=== PATIENT | female | born 1930 | race Caucasian/White ===

== ENCOUNTER 2017-05-16 10:59 | Inpatient (IN) | payer MEDICARE, OTHER ==
[~2017-05-16] VITALS: Ht 157.5 cm; Wt 60.0 kg
[~2017-05-16 10:59] MED LIST: BISA10SU8 PR; DOCU1CAP39 PO; GEMF600 PO; GLYB2.5T3 PO; LEVE500 PO; LORTA5 PO; MILKSUS5 PO
[2017-05-16 11:01] VITALS: BP 154/72; PULSE 78; RESP 24; TEMP 97.7; O2SAT 93
--- NOTE | 2017-05-16 12:26 | PD ---
HPI Chief Complaint: ENT Complaint Time Seen by Provider: 12:07 Travel History International Travel<30 days: No Contact w/Intl Traveler<30days: No Traveled to known affect area: No History of Present Illness HPI 86-year-old female presents to the emergency department for evaluation of pain to her left forehead. She states she has pain that starts in the ear and radiates to the forehead. Just reports drainage from the left eye. The patient states she saw an eye doctor and her primary care physician on , 2 days ago. Her primary care physician is Dr. Diop. I reviewed the paperwork from him. He did suspect shingles at that time, but did not have a rash. He referred her to an chancellor, Dr. Dobbs, who stated there was nothing wrong with her eye at that time. However, since then, she has developed a rash. The rash is erythematous in nature, but stops at the midline. I do see some vesicles on the scalp region. She has yellow drainage from the left eye with erythematous conjunctiva. The patient was prescribed gabapentin by her primary care physician for possible trigeminal neuralgia. She states she had lab work done prior to seeing him. She states the pain is sharp and shooting. She does report history of shingles with one vesicle to the left chin. PFSH Past Medical History Hx Anticoagulant Therapy: No Arthritis: Yes Asthma: Yes (BRONCHIAL) Atrial Fibrillation: Yes Blood Disorders: No Anxiety: No Depression: No Heart Rhythm Problems: Yes (HEART MURMUR, ATRIAL FIB ) Cancer: No Cardiac Catheterization: Yes Cardiovascular Problems: No High Cholesterol: Yes Chemotherapy: No Chest Pain: Yes Congestive Heart Failure: No Cerebrovascular Accident: Yes Diabetes: Yes Endocrine: Yes GERD: No Genitourinary: No Hiatal Hernia: No Hypertension: Yes Immune Disorder: No Musculoskeletal: Yes Neurologic: No Psychiatric: No Reproductive: No Respiratory: No Migraines: Yes (hx) Myocardial Infarction: No Radiation Therapy: No Seizures: No Sleep Apnea: No Thyroid Disease: Yes Ulcer: No Menopausal: Yes Past Surgical History Abdominal Surgery: No Cardiac Surgery: No Coronary Artery Bypass Graft: No Ear Surgery: No Endocrine Surgery: No Eye Surgery: No Genitourinary Surgery: No Gynecologic Surgery: No Hysterectomy: No Oral Surgery: No Thoracic Surgery: No Social History Alcohol Use: No Tobacco Use: No Substance Use: No Allergies-Medications (Allergen,Severity, Reaction): Coded Allergies: penicillin G (Unverified Allergy, Severe, 05/05/17) atorvastatin (Unverified Allergy, Intermediate, 05/05/17) Sulfa (Sulfonamide Antibiotics) (Unverified Allergy, Unknown, 05/05/17) Uncoded Allergies: STATIN DRUGS (Allergy, Intermediate, 12/26/10) Reported Meds & Prescriptions Reported Meds & Active Scripts Active Reported Gabapentin 100 Mg Cap 100 Mg PO HS Polymyxin B-Trimethoprim Opth Drops 10,000-0.1 Unit/Ml-% Soln 1 Drop RIGHT EYE Q6HR Ibuprofen 600 Mg Tab 600 Mg PO Q6H PRN Methimazole 5 Mg Tab 2.5 Mg PO DAILY Gemfibrozil 600 Mg Tab 600 Mg PO BIDAC Take 30 minutes prior to breakfast and dinner. Aspirin 81 Mg Chew 81 Mg CHEW DAILY Metformin (Metformin HCl) 500 Mg Tab 500 Mg PO DAILY With a meal Glimepiride 4 Mg Tab 4 Mg PO DAILY Take with breakfast or first main meal Review of Systems Except as stated in HPI: all other systems reviewed are Neg Physical Exam Narrative GENERAL: Well-nourished, well-developed elderly female patient, afebrile. SKIN: Focused skin assessment warm/dry. Patient has erythema at the left forehead and to the left eye orbit that stops at the midline. There is also some erythema to the scalp region. I am able to locate some vesicles in the scalp region. HEAD: Normocephalic. Atraumatic. ENT: Mucosa pink and moist. No erythema or exudates. No uvular edema. No uvular , palatal, or tonsillar deviation. Airway patent. Nasal turbinates appear normal without nasal blood, purulent drainage or septal hematoma. Bilateral tympanic membranes are clear without erythema or perforation. EYES: No scleral icterus. Left conjunctiva is erythematous with yellow drainage noted. Patient has tenderness to palpation of the left upper and lower eyelid with swelling noted. Fluorescein examination is negative. NECK: Supple, trachea midline. No JVD or lymphadenopathy. CARDIOVASCULAR: Regular rate and rhythm without murmurs, gallops, or rubs. RESPIRATORY: Breath sounds equal bilaterally. No accessory muscle use. Lungs sounds are clear to auscultation. GASTROINTESTINAL: Abdomen soft, non-tender, nondistended. MUSCULOSKELETAL: No cyanosis, or edema. BACK: Nontender without obvious deformity. No CVA tenderness. Data Data Last Documented VS Vital Signs Date Time Temp Pulse Resp B/P (MAP) Pulse Ox O2 Delivery O2 Flow Rate FiO2 05/16/17 11:01 97.7 78 24 154/72 (99) 93 Room Air Orders Orders Proparacaine 0.5% Opth Soln (Alcaine 0.5 (05/16/17 12:30) Iv Access Insert/Monitor (05/16/17 12:49) Comprehensive Metabolic Panel (05/16/17 12:49) Complete Blood Count With Diff (05/16/17 12:49) Acyclovir Inj (Zovirax Inj) (05/16/17 13:00) Admit Order (Ed Use Only) (05/16/17 13:56) Labs Laboratory Tests Test 05/16/17 13:00 White Blood Count 7.0 TH/MM3 Red Blood Count 4.82 MIL/MM3 Hemoglobin 13.8 GM/DL Hematocrit 43.0 % Mean Corpuscular Volume 89.3 FL Mean Corpuscular Hemoglobin 28.7 PG Mean Corpuscular Hemoglobin Concent 32.1 % Red Cell Distribution Width 13.6 % Platelet Count 156 TH/MM3 Mean Platelet Volume 9.0 FL Neutrophils (%) (Auto) 70.0 % Lymphocytes (%) (Auto) 15.9 % Monocytes (%) (Auto) 12.2 % Eosinophils (%) (Auto) 1.3 % Basophils (%) (Auto) 0.6 % Neutrophils # (Auto) 4.9 TH/MM3 Lymphocytes # (Auto) 1.1 TH/MM3 Monocytes # (Auto) 0.8 TH/MM3 Eosinophils # (Auto) 0.1 TH/MM3 Basophils # (Auto) 0.0 TH/MM3 CBC Comment DIFF FINAL Differential Comment Blood Urea Nitrogen 25 MG/DL Creatinine 1.23 MG/DL Random Glucose 269 MG/DL Total Protein 7.0 GM/DL Albumin 3.6 GM/DL Calcium Level 10.1 MG/DL Alkaline Phosphatase 93 U/L Aspartate Amino Transf (AST/SGOT) 15 U/L Alanine Aminotransferase (ALT/SGPT) 18 U/L Total Bilirubin 0.4 MG/DL Sodium Level 137 MEQ/L Potassium Level 4.3 MEQ/L Chloride Level 104 MEQ/L Carbon Dioxide Level 25.3 MEQ/L Anion Gap 8 MEQ/L Estimat Glomerular Filtration Rate 41 ML/MIN [facility] Medical Decision Making Medical Screen Exam Complete: Yes Emergency Medical Condition: Yes Medical Record Reviewed: Yes Differential Diagnosis herpes zoster vs. herpes zoster ophthalmicus vs. trigeminal neuralgia vs. preseptal cellulitis Narrative Course 86-year-old female presents to the emergency department for evaluation of pain to her left forehead, with left eye irritation and drainage. On exam, the patient does have erythematous rash with some vesicles noted in the scalp. Concern is for herpes zoster. I am unable to visualize any dendritic lesions with the slit lamp. I discussed the case with my attending physician, Dr. Crockett, who recommends admission due to location and severity of zoster and close proximity to eye with a consult to ophthalmology. CBC, CMP are ordered and pending. Patient is given IV acyclovir 10 mg/kg. CBC shows elevated monocytes at 12.2. CMP shows BUN 25, creatinine of 1.23, glucose 269. [facility] is paged for admission. Dr. Baez accepted admission. I spoke with Dr. Souza who states that chancellor needs to see patient approximately 10 days after vesicles erupt. He does not recommend any further treatment other than acyclovir at this time. Diagnosis Primary Impression: Herpes zoster Qualified Codes: B02.31 - Zoster conjunctivitis Admitting Information Admitting Physician Requests: Vida Ferro May 16, 2017 12:26
[2017-05-16] MEDS ORDERED: PROPARACAINE HCL 0.5% OPHT SOLN 15 ML BTL LEFT EYE ONE (12:30)
[2017-05-16] MEDS ORDERED: ACYCLOVIR INJ 600 MG in SODIUM CHLORIDE 0.9% INJ 100 ML IV ONE (13:00)
[2017-05-16 13:14] LABS: AUTOMATED NEUTROPHIL # 4.9 TH/MM3 (1.8-7.7); BASOPHIL % 0.6 % (0.0-2.0); EOSINOPHIL # 0.1 TH/MM3 (0-0.4); EOSINOPHIL % 1.3 % (0.0-4.0); HEMO FLAGS DIFF FINAL; LYMPH % 15.9 % (9.0-44.0); LYMPHOCYTE # 1.1 TH/MM3 (1.0-4.8); MEAN CELL VOLUME 89.3 FL (80.0-100.0); MEAN CORPUSCULAR HEMOGLOBIN 28.7 PG (27.0-34.0); MEAN CORPUSCULAR HGB CONC 32.1 % (32.0-36.0); MONO % 12.2 % (0.0-8.0); PLATELET COUNT 156 TH/MM3 (150-450); RED BLOOD COUNT 4.82 MIL/MM3 (4.00-5.30); RED CELL DISTRIBUTION WIDTH 13.6 % (11.6-17.2)
[2017-05-16 13:30] LABS: ANION GAP 8 MEQ/L (5-15); AST (GOT) 15 U/L (15-37); BICARBONATE 25.3 MEQ/L (21.0-32.0); BLOOD UREA NITROGEN 25 MG/DL (7-18); CHLORIDE 104 MEQ/L (98-107); GLOMERULAR FILTRATION RATE 41 ML/MIN (>89); POTASSIUM 4.3 MEQ/L (3.5-5.1); SODIUM (NA) 137 MEQ/L (136-145)
[2017-05-16 13:31] LABS: ALT (GPT) 18 U/L (10-53)
[2017-05-16 13:33] LABS: ALKALINE PHOSPHATASE 93 U/L (45-117); TOTAL BILIRUBIN ADULT 0.4 MG/DL (0.2-1.0)
[2017-05-16] MEDS ORDERED: methylPREDNISolone SOD SUCC 125 MG/2 ML VIAL IV PUSH ONE (14:15)
[2017-05-16] MEDS ORDERED: HYDROmorphone HCL PF 1 MG/ML VIAL IV PUSH PRN (14:15)
--- NOTE | 2017-05-16 14:15 | HHI.HP ---
HPI Service [facility]ists Primary Care Physician Maikel Aldana M.D. Admission Diagnosis herpes zoster with possible eye involvment Chief Complaint: left ear/face pain and rash. Travel History International Travel<30 Days: No Contact w/Intl Traveler <30 Da: No Traveled to Known Affected Are: No History of Present Illness Pt is 86 yo with hx sdh, pafib, htn who presents with left ear/facial pain x 4 or 5days. Seen by pcp/ophtho and concerns for herpes zoster. No reported eye involvement per her eye doctor. Now pt presents with rash over the scalp/forehead/cheek/nose with scleral injection. ED performed florescein testing with slit lamp and no proof of eye involvement. ED consulted with ophtho nanoelectronics engineer and no need for consult..but f/u in 10 d IV acyclovir was given in ED. PT still has significan pain and has not been eating well. Review of Systems Other left ear/facial pain Past Family Social History Past Medical History sdh s/p evacuation 2013 pAFIB htn hyperlipidemia hyperthyroidism dm 2 hx herpes zoster...chin Reported Medications asa 81mg daily lopid 300mg bid amaryl 4mg dialy metformin 500mg daily polymyxin 4x daily to right eye gabapentin titration...100mg at present ibuprofen prn MV methimazole 2.5m daily Allergies: Coded Allergies: penicillin G (Unverified Allergy, Severe, 05/05/17) atorvastatin (Unverified Allergy, Intermediate, 05/05/17) Sulfa (Sulfonamide Antibiotics) (Unverified Allergy, Unknown, 05/05/17) Uncoded Allergies: STATIN DRUGS (Allergy, Intermediate, 12/26/10) Family History nc Social History no etoh. tob Physical Exam Vital Signs erythematous/tender rash over left cheek/nose/forehead/scalp but not crossing midline. no vesicles in ear canal. injection of the left sclera noted heart irreg lung cta abd /snt ext no edema Laboratory Laboratory Tests Test 05/16/17 13:00 White Blood Count 7.0 Red Blood Count 4.82 Hemoglobin 13.8 Hematocrit 43.0 Mean Corpuscular Volume 89.3 Mean Corpuscular Hemoglobin 28.7 Mean Corpuscular Hemoglobin Concent 32.1 Red Cell Distribution Width 13.6 Platelet Count 156 Mean Platelet Volume 9.0 Neutrophils (%) (Auto) 70.0 Lymphocytes (%) (Auto) 15.9 Monocytes (%) (Auto) 12.2 Eosinophils (%) (Auto) 1.3 Basophils (%) (Auto) 0.6 Neutrophils # (Auto) 4.9 Lymphocytes # (Auto) 1.1 Monocytes # (Auto) 0.8 Eosinophils # (Auto) 0.1 Basophils # (Auto) 0.0 CBC Comment DIFF FINAL Differential Comment Blood Urea Nitrogen 25 Creatinine 1.23 Random Glucose 269 Total Protein 7.0 Albumin 3.6 Calcium Level 10.1 Alkaline Phosphatase 93 Aspartate Amino Transf (AST/SGOT) 15 Alanine Aminotransferase (ALT/SGPT) 18 Total Bilirubin 0.4 Sodium Level 137 Potassium Level 4.3 Chloride Level 104 Carbon Dioxide Level 25.3 Anion Gap 8 Estimat Glomerular Filtration Rate 41 Result Diagram: 05/16/17 1300 05/16/17 1300 Riteshrinryan VTE Risk Assessment Caprini VTE Risk Assessment: Mod/High Risk (score >= 2) Caprini Risk Assessment Model Point Value = 1 Point Value = 2 Point Value = 3 Point Value = 5 Age 41-60 Minor surgery BMI > 25 kg/m2 Swollen legs Varicose veins or History of unexplained or recurrent spontaneous Oral contraceptives or hormone replacement Sepsis (< 1 month) Serious lung disease, including pneumonia (< 1 month) Abnormal pulmonary function Acute myocardial infarction Congestive heart failure (< 1 month) History of inflammatory bowel disease Medical patient at bed rest Age 61-74 Arthroscopic surgery Major open surgery (> 45 min) Laparoscopic surgery (> 45 min) Malignancy Confined to bed (> 72 hours) Immobilizing plaster cast Central venous access Age >= 75 History of VTE Family history of VTE Factor V Leiden Prothrombin [id number] Lupus anticoagulant Anticardiolipin antibodies Elevated serum homocysteine Heparin-induced thrombocytopenia Other congenital or acquired thrombophilia Stroke (< 1 month) Elective arthroplasty Hip, pelvis, or leg fracture Acute spinal cord injury (< 1 month) Prophylaxis Regimen Total Risk Factor Score Risk Level Prophylaxis Regimen 0-1 Low Early ambulation 2 Moderate Order ONE of the following: *Sequential Compression Device (SCD) *Heparin 5000 units SQ BID 3-4 Higher Order ONE of the following medications: *Heparin 5000 units SQ TID *Enoxaparin/Lovenox 40 mg SQ daily (WT < 150 kg, CrCl > 30 mL/min) *Enoxaparin/Lovenox 30 mg SQ daily (WT < 150 kg, CrCl > 10-29 mL/min) *Enoxaparin/Lovenox 30 mg SQ BID (WT < 150 kg, CrCl > 30 mL/min) AND/OR *Sequential Compression Device (SCD) 5 or more Highest Order ONE of the following medications: *Heparin 5000 units SQ TID (Preferred with Epidurals) *Enoxaparin/Lovenox 40 mg SQ daily (WT < 150 kg, CrCl > 30 mL/min) *Enoxaparin/Lovenox 30 mg SQ daily (WT < 150 kg, CrCl > 10-29 mL/min) *Enoxaparin/Lovenox 30 mg SQ BID (WT < 150 kg, CrCl > 30 mL/min) AND *Sequential Compression Device (SCD) Assessment and Plan Problem List: (1) Herpes zoster ICD Codes: B02.9 - Zoster without complications Status: Acute Plan: Pt with left ear/facial pain over this past 4 or 5 days seen by pcp/ophtho concerns for herpes zoster. no reported eye involvement per her eye doctor. Now pt presents with rash over the scalp/forehead/cheek/nose with scleral injection. ED performed florescein testing with slit lamp and no proof of eye involvement. ED consulted with ophtho nanoelectronics engineer and no need for consult..but f/u in 10 d will cont iv acyclovir and aggressive pain control gentle ivf and recheck labs in AM. cont ssi/oha (2) Dehydration ICD Codes: E86.0 - Dehydration Status: Acute Plan: see above (3) DM type 2 (diabetes mellitus, type 2) ICD Codes: E11.9 - Type 2 diabetes mellitus Status: Chronic Plan: see above (4) HTN (hypertension) ICD Codes: I10 - Hypertension Status: Chronic (5) Afib ICD Codes: I48.91 - Atrial fibrillation Status: Chronic Plan: on just asa. (6) SDH (subdural hematoma) ICD Codes: I62.00 - Subdural hematoma Status: Resolved Physician Certification 2 Midnight Certification Type: Admission for Inpatient Services Order for Inpatient Services 3The services are ordered in accordance with Medicare regulations or non- Medicare payer requirements, as applicable. In the case of services not specified as inpatient-only, they are appropriately provided as inpatient services in accordance with the 2-midnight benchmark. Estimated LOS (days): 3 3 days is the estimated time the patient will need to remain in the hospital, assuming treatment plan goals are met and no additional complications. Post-Hospital Plan: Home Problem Qualifiers (1) Herpes zoster: Qualified Codes: B02.31 - Zoster conjunctivitis Yanick Worthington MD May 16, 2017 14:15
[2017-05-16] MEDS ORDERED: ACETAMINOPHEN 325 MG TAB PO PRN (14:30)
[2017-05-16] MEDS ORDERED: ONDANSETRON HCL 4 MG/2 ML VIAL IV PUSH PRN (14:30)
[2017-05-16] MEDS ORDERED: ASPI81CH CHEW (14:32)
[2017-05-16] MEDS ORDERED: METH5TAB4 PO (14:32)
[2017-05-16] MEDS ORDERED: GEMF600T PO (14:32)
[2017-05-16] MEDS ORDERED: METF500T PO (14:32)
[2017-05-16] MEDS ORDERED: TRIMSOL RIGHT EYE (14:32)
[2017-05-16] MEDS ORDERED: GABA100C4 PO (14:32)
[2017-05-16] MEDS ORDERED: IBUP-232 PO (14:32)
[2017-05-16] MEDS ORDERED: GLIM4TAB PO (14:32)
[2017-05-16] MEDS ORDERED: PILL SPLITTER OTHER PRN (15:15)
[2017-05-16] MEDS: SODIUM CHLOR 0.9% 1000 ML INJ 1,000 ML IV SCH (15:23)
[2017-05-16 15:30] VITALS: BP 152/78; PULSE 76; RESP 20
[2017-05-16] MEDS ORDERED: DEXTROSE 50% IN WATER 50 ML VIAL(D50) IV PUSH PRN (15:45)
[2017-05-16] MEDS ORDERED: GLUCAGON 1 MG/ML VIAL OTHER PRN (15:45)
[2017-05-16] MEDS: INSULIN ASPART SUPPLEMENTAL SCALE SQ SCH ×2 (16:08→22:36)
[2017-05-16] MEDS: GABAPENTIN 300 MG CAP PO SCH (18:45)
[2017-05-16] MEDS: POLYMYXIN/TRIMETHOPRIM OPHT SOLN 10 ML BTL RIGHT EYE SCH (18:45)
[2017-05-16 20:00] VITALS: BP 162/72; PULSE 75; RESP 18; TEMP 97.9; O2SAT 91
[2017-05-16] MEDS: ACYCLOVIR INJ 600 MG in SODIUM CHLORIDE 0.9% INJ 100 ML IV SCH (22:34)
[2017-05-17] VITALS: BP 153/70; PULSE 73; RESP 18; TEMP 97.8; O2SAT 92
[2017-05-17] MEDS: POLYMYXIN/TRIMETHOPRIM OPHT SOLN 10 ML BTL RIGHT EYE SCH ×4 (00:20→18:11)
[2017-05-17 04:00] VITALS: BP 124/60; PULSE 64; RESP 18; TEMP 98.4; O2SAT 93
[2017-05-17] MEDS: ACYCLOVIR INJ 600 MG in SODIUM CHLORIDE 0.9% INJ 100 ML IV SCH ×3 (04:55→23:23)
[2017-05-17] MEDS: SODIUM CHLOR 0.9% 1000 ML INJ 1,000 ML IV SCH (04:58)
[2017-05-17] MEDS: INSULIN ASPART SUPPLEMENTAL SCALE SQ SCH ×4 (05:33→20:37)
[2017-05-17 08:00] VITALS: BP 151/69; PULSE 72; RESP 17; TEMP 97.9; O2SAT 96
[2017-05-17] MEDS: METHIMAZOLE 5 MG TAB PO SCH (08:31)
[2017-05-17] MEDS: GLIMEPIRIDE 4 MG TAB PO SCH (08:31)
[2017-05-17] MEDS: PANTOPRAZOLE SOD 40 MG DELAYED RELEASE TAB PO SCH (08:31)
[2017-05-17] MEDS: GABAPENTIN 300 MG CAP PO SCH ×3 (08:31→18:11)
[2017-05-17] MEDS: GEMFIBROZIL 600 MG TAB PO SCH ×2 (08:31→16:20)
[2017-05-17] MEDS: ASPIRIN 81 MG CHEW TAB CHEW SCH (08:31)
--- NOTE | 2017-05-17 10:29 | HHI.PR ---
Subjective Remarks seems a little more comfortable. left eye vision is still nml per pt. Objective Vitals left scalp/face/nose/cheek with vesicular/papular rash on red base with confluence left sclera injection heartreg lung cta abd snt ext no edema Vital Signs Date Time Temp Pulse Resp B/P (MAP) Pulse Ox O2 Delivery O2 Flow Rate FiO2 05/17/17 08:00 97.9 72 17 151/69 (96) 96 05/17/17 04:00 98.4 64 18 124/60 (81) 93 05/17/17 00:00 97.8 73 18 153/70 (97) 92 05/16/17 20:00 97.9 75 18 162/72 (102) 91 05/16/17 15:30 76 20 152/78 (102) 05/16/17 11:01 97.7 78 24 154/72 (99) 93 Room Air Result Diagram: 05/16/17 1300 05/16/17 1300 A/P Problem List: (1) Herpes zoster ICD Codes: B02.9 - Zoster without complications Status: Acute Plan: Pt with left ear/facial pain over this past 4 or 5 days seen by pcp/ophtho concerns for herpes zoster. no reported eye involvement per her eye doctor. Now pt presents with rash over the scalp/forehead/cheek/nose with scleral injection. ED performed florescein testing with slit lamp and no proof of eye involvement. ED consulted with ophtho responder and no need for consult..but f/u in 10 d will cont iv acyclovir and aggressive pain control d/c ivf cont ssi/oha possible d/c tomorrow with close f/u PT today (2) Dehydration ICD Codes: E86.0 - Dehydration Status: Acute Plan: see above (3) DM type 2 (diabetes mellitus, type 2) ICD Codes: E11.9 - Type 2 diabetes mellitus Status: Chronic Plan: see above (4) HTN (hypertension) ICD Codes: I10 - Hypertension Status: Chronic (5) Afib ICD Codes: I48.91 - Atrial fibrillation Status: Chronic Plan: on just asa. (6) SDH (subdural hematoma) ICD Codes: I62.00 - Subdural hematoma Status: Resolved Problem Qualifiers (1) Herpes zoster: Qualified Codes: B02.31 - Zoster conjunctivitis Yanick Worthington MD May 17, 2017 10:29
[2017-05-17] MEDS ORDERED: methylPREDNISolone SOD SUCC 125 MG/2 ML VIAL IV PUSH ONE (11:00)
[2017-05-17 12:00] VITALS: BP 128/81; PULSE 60; RESP 17; TEMP 99.7; O2SAT 93
[2017-05-17 12:27] LABS: BICARBONATE 25.5 MEQ/L (21.0-32.0); POTASSIUM 4.8 MEQ/L (3.5-5.1)
[2017-05-17 16:00] VITALS: BP 130/66; PULSE 65; RESP 17; TEMP 99; O2SAT 92
[2017-05-17 20:00] VITALS: BP 145/64; PULSE 64; RESP 16; TEMP 97.7; O2SAT 98
[2017-05-18] VITALS: BP 112/52; PULSE 58; RESP 18; TEMP 97.6; O2SAT 94
[2017-05-18] MEDS: GEMFIBROZIL 600 MG TAB PO SCH ×2 (05:59→17:15)
[2017-05-18] MEDS: INSULIN ASPART SUPPLEMENTAL SCALE SQ SCH ×4 (06:02→21:10)
[2017-05-18] MEDS: POLYMYXIN/TRIMETHOPRIM OPHT SOLN 10 ML BTL RIGHT EYE SCH ×4 (06:04→17:15)
[2017-05-18 08:26] VITALS: BP 153/78; PULSE 58; RESP 16; TEMP 98.2; O2SAT 95
[2017-05-18] MEDS: GABAPENTIN 300 MG CAP PO SCH ×3 (08:54→17:15)
[2017-05-18] MEDS: METHIMAZOLE 5 MG TAB PO SCH (08:54)
[2017-05-18] MEDS: GLIMEPIRIDE 4 MG TAB PO SCH (08:55)
[2017-05-18] MEDS: PANTOPRAZOLE SOD 40 MG DELAYED RELEASE TAB PO SCH (08:55)
[2017-05-18] MEDS: ASPIRIN 81 MG CHEW TAB CHEW SCH (08:55)
--- NOTE | 2017-05-18 09:01 | HHI.PR ---
Subjective Remarks still c/o sharps intermittent pains over left ear/scalp. pt didn't know she had prn meds to take yesterday Objective Vitals left scalp/face redness/vesicles improved heart reg lung cta abd s/nt ext no edema Vital Signs Date Time Temp Pulse Resp B/P (MAP) Pulse Ox O2 Delivery O2 Flow Rate FiO2 05/18/17 08:26 98.2 58 16 153/78 (103) 95 05/18/17 00:00 97.6 58 18 112/52 (72) 94 05/17/17 20:00 97.7 64 16 145/64 (91) 98 05/17/17 16:00 99.0 65 17 130/66 (87) 92 05/17/17 12:00 99.7 60 17 128/81 (97) 93 Result Diagram: 05/16/17 1300 05/17/17 1055 A/P Problem List: (1) Herpes zoster ICD Codes: B02.9 - Zoster without complications Status: Acute Plan: Pt with left ear/facial pain over this past 4 or 5 days seen by pcp/ophtho concerns for herpes zoster. no reported eye involvement per her eye doctor. Now pt presents with rash over the scalp/forehead/cheek/nose with scleral injection. ED performed florescein testing with slit lamp and no proof of eye involvement. ED consulted with ophtho buttonholer and no need for consult..but f/u in 10 d will cont iv acyclovir and aggressive pain control cont ssi/oha possible d/c tomorrow with close f/u PT today Will keep pt today..she doesn't seem to understand the medications and I worry she will get confused or have adverse med reaction at home. (2) Dehydration ICD Codes: E86.0 - Dehydration Status: Acute Plan: see above (3) DM type 2 (diabetes mellitus, type 2) ICD Codes: E11.9 - Type 2 diabetes mellitus Status: Chronic Plan: see above (4) HTN (hypertension) ICD Codes: I10 - Hypertension Status: Chronic (5) Afib ICD Codes: I48.91 - Atrial fibrillation Status: Chronic Plan: on just asa. (6) SDH (subdural hematoma) ICD Codes: I62.00 - Subdural hematoma Status: Resolved Problem Qualifiers (1) Herpes zoster: Qualified Codes: B02.31 - Zoster conjunctivitis Elin,Yanick L MD May 18, 2017 09:01
[2017-05-18] MEDS ORDERED: methylPREDNISolone SOD SUCC 40 MG/1 ML VIAL IV PUSH ONE (09:30)
[2017-05-18] MEDS: ACETAMINOPHEN/HYDROcodone 325 MG/7.5 MG TAB PO PRN ×2 (10:38→21:10)
[2017-05-18] MEDS: ACYCLOVIR INJ 600 MG in SODIUM CHLORIDE 0.9% INJ 100 ML IV SCH (12:11)
[2017-05-18 13:02] VITALS: BP 174/76; PULSE 56; RESP 20; TEMP 97.9; O2SAT 95
[2017-05-18 16:10] VITALS: BP 142/66; PULSE 54; RESP 20; TEMP 98.2; O2SAT 95
[2017-05-18 20:34] VITALS: BP 157/69; PULSE 60; RESP 16; TEMP 98.5; O2SAT 94
[2017-05-19] MEDS: ACYCLOVIR INJ 600 MG in SODIUM CHLORIDE 0.9% INJ 100 ML IV SCH ×2 (00:12→14:20)
[2017-05-19 00:13] VITALS: BP 167/74; PULSE 52; RESP 18; TEMP 97.4; O2SAT 96
[2017-05-19] MEDS: POLYMYXIN/TRIMETHOPRIM OPHT SOLN 10 ML BTL RIGHT EYE SCH ×5 (00:13→23:34)
[2017-05-19 04:27] VITALS: BP 163/77; PULSE 54; RESP 16; TEMP 98.5; O2SAT 95
[2017-05-19] MEDS: GEMFIBROZIL 600 MG TAB PO SCH ×2 (06:44→17:42)
[2017-05-19] MEDS: INSULIN ASPART SUPPLEMENTAL SCALE SQ SCH ×4 (06:44→21:00)
[2017-05-19 08:46] VITALS: BP 180/80; PULSE 52; RESP 18; TEMP 97.5; O2SAT 95
[2017-05-19] MEDS: ASPIRIN 81 MG CHEW TAB CHEW SCH (09:20)
[2017-05-19] MEDS: GABAPENTIN 300 MG CAP PO SCH ×3 (09:20→17:42)
[2017-05-19] MEDS: PANTOPRAZOLE SOD 40 MG DELAYED RELEASE TAB PO SCH (09:20)
[2017-05-19] MEDS: GLIMEPIRIDE 4 MG TAB PO SCH ×2 (09:20→17:42)
[2017-05-19] MEDS: ACETAMINOPHEN/HYDROcodone 325 MG/7.5 MG TAB PO PRN (09:29)
[2017-05-19] MEDS: METHIMAZOLE 5 MG TAB PO SCH (09:30)
[2017-05-19 11:00] VITALS: BP 191/77; PULSE 53; RESP 18; TEMP 97.6; O2SAT 95
[2017-05-19] MEDS ORDERED: cloNIDine HCL 0.2 MG TAB PO PRN (13:00)
[2017-05-19] MEDS ORDERED: ENALAPRILAT 1.25 MG/ML VIAL IV PRN (13:00)
[2017-05-19] MEDS: NIFEdipine 60 MG SUSTAINED RELEASE TAB PO SCH (14:20)
--- NOTE | 2017-05-19 16:33 | HHI.PR ---
Subjective Remarks No new complaints. Objective Vitals Vital Signs Date Time Temp Pulse Resp B/P (MAP) Pulse Ox O2 Delivery O2 Flow Rate FiO2 05/19/17 11:00 97.6 53 18 191/77 (115) 95 05/19/17 10:30 16 05/19/17 08:46 97.5 52 18 180/80 (113) 95 05/19/17 04:27 98.5 54 16 163/77 (105) 95 05/19/17 00:13 97.4 52 18 167/74 (105) 96 05/18/17 20:34 98.5 60 16 157/69 (98) 94 05/19/17 05/19/17 05/20/17 15:00 23:00 07:00 Intake Total 1440 ml Balance 1440 ml Intake Oral 1440 ml # Voids 5 Result Diagram: 05/16/17 1300 05/17/17 1055 Objective Remarks GENERAL: This is a well-nourished, well-developed patient, in no apparent distress. CARDIOVASCULAR: Regular rate and rhythm without murmurs, gallops, or rubs. RESPIRATORY: Clear to auscultation. Breath sounds equal bilaterally. No wheezes , rales, or rhonchi. GASTROINTESTINAL: Abdomen soft, non-tender, nondistended. Normal active bowel sounds MUSCULOSKELETAL: Extremities without clubbing, cyanosis, or edema. NEURO: Alert & Oriented x4 to person, place, time, situation. Moves all ext x4 A/P Problem List: (1) HTN (hypertension) ICD Codes: I10 - Hypertension Status: Chronic Plan: - bp running high today - pain likely contributing - started procardia xl 60mg daily - need improved bp control prior to discharge (2) Herpes zoster ICD Codes: B02.9 - Zoster without complications Status: Acute Plan: Pt with left ear/facial pain over this past 4 or 5 days prior to admission seen by pcp/ophtho concerns for herpes zoster. no reported eye involvement per her eye doctor. Now pt presents with rash over the scalp/forehead/cheek/nose with scleral injection. ED performed florescein testing with slit lamp and no proof of eye involvement. ED consulted with ophtho communications department head and no need for consult..but f/u in 10 d - IV acyclovir - polytrim opthalmic - Neurontin, norco - PT - anticipate d/c to home with HHC in next 1-2 days (3) Dehydration ICD Codes: E86.0 - Dehydration Status: Acute Plan: - improved from admission (4) DM type 2 (diabetes mellitus, type 2) ICD Codes: E11.9 - Type 2 diabetes mellitus Status: Chronic Plan: - increase amaryl to 4mg BID - resume metformin in AM - SSI (5) Afib ICD Codes: I48.91 - Atrial fibrillation Status: Chronic Plan: - obtain EKG - ASA (6) SDH (subdural hematoma) ICD Codes: I62.00 - Subdural hematoma Status: Resolved Problem Qualifiers (1) HTN (hypertension): Qualified Codes: I10 - Essential (primary) hypertension (2) Herpes zoster: Qualified Codes: B02.31 - Zoster conjunctivitis Gokul Frederick DO May 19, 2017 16:32
[2017-05-19 17:04] VITALS: BP 151/65; PULSE 53; RESP 18; TEMP 97.3; O2SAT 95
[2017-05-19] MEDS ORDERED: MAGNESIUM HYDROXIDE SUSP 30 ML CUP PO PRN (17:15)
[2017-05-19] MEDS: DOCUSATE SODIUM 100 MG CAP PO SCH (21:24)
[2017-05-19 22:24] VITALS: BP 111/57; PULSE 80; RESP 16; TEMP 97.4; O2SAT 96
[2017-05-20 01:21] VITALS: BP 141/92; PULSE 95; RESP 16; TEMP 98.7; O2SAT 97
[2017-05-20] MEDS: ACYCLOVIR INJ 600 MG in SODIUM CHLORIDE 0.9% INJ 100 ML IV SCH ×3 (02:41→23:56)
[2017-05-20 05:00] VITALS: BP 114/59; PULSE 76; RESP 12; TEMP 97.2; O2SAT 94
[2017-05-20] MEDS: INSULIN ASPART SUPPLEMENTAL SCALE SQ SCH ×4 (06:22→21:21)
[2017-05-20] MEDS: POLYMYXIN/TRIMETHOPRIM OPHT SOLN 10 ML BTL RIGHT EYE SCH ×4 (06:50→23:57)
[2017-05-20] MEDS: GLIMEPIRIDE 4 MG TAB PO SCH (06:51)
[2017-05-20] MEDS: GEMFIBROZIL 600 MG TAB PO SCH ×2 (06:51→16:23)
[2017-05-20 08:52] VITALS: BP 102/51; PULSE 71; RESP 18; TEMP 98.1; O2SAT 93
[2017-05-20] MEDS: metFORMIN HCL 500 MG TAB PO SCH (09:23)
[2017-05-20] MEDS: DOCUSATE SODIUM 100 MG CAP PO SCH ×2 (09:24→21:04)
[2017-05-20] MEDS: PANTOPRAZOLE SOD 40 MG DELAYED RELEASE TAB PO SCH (09:24)
[2017-05-20] MEDS: GABAPENTIN 300 MG CAP PO SCH ×3 (09:24→16:23)
[2017-05-20] MEDS: ASPIRIN 81 MG CHEW TAB CHEW SCH (09:24)
[2017-05-20] MEDS: NIFEdipine 60 MG SUSTAINED RELEASE TAB PO SCH (09:24)
[2017-05-20] MEDS: METHIMAZOLE 5 MG TAB PO SCH (09:24)
--- NOTE | 2017-05-20 10:47 | HHI.FF ---
Face to Face Verification Diagnosis: (1) Generalized weakness (2) Herpes zoster (3) Fever (4) Dehydration (5) HTN (hypertension) (6) DM type 2 (diabetes mellitus, type 2) (7) Afib Physical Therapy Order: Evaluate and Treat, Improve ambulation, Strength and gait training Home Health Nursing Order: Medical education Diabetic education Nursing assessment with vital signs I have seen patient Venus Gaona on 05/20/17. My clinical findings support the need for the requested home health care services because: Deconditioned w/ increased weakness Infection w/ risk of complications I certify that my clinical findings support that this patient is homebound because: Unsteady gait/balance Deepika Welsh May 20, 2017 10:47
--- NOTE | 2017-05-20 11:09 | HHI.PR ---
Subjective Remarks Pt complains of continued pain and does not feel that her pain is well controlled Her BP is improved but running low normal this morning BS are also improved and running low Objective Vitals Vital Signs Date Time Temp Pulse Resp B/P (MAP) Pulse Ox O2 Delivery O2 Flow Rate FiO2 05/20/17 08:52 98.1 71 18 102/51 (68) 93 05/20/17 05:00 97.2 76 12 114/59 (77) 94 05/20/17 01:21 () 05/19/17 22:24 97.4 80 16 111/57 (75) 96 05/19/17 17:04 97.3 53 18 151/65 (93) 95 05/19/17 11:00 97.6 53 18 191/77 (115) 95 Result Diagram: 05/16/17 1300 05/17/17 1055 Objective Remarks General: NAD, AAOx3 Chest: CTA Cardiac: Regular Abd: +BS, soft ND/NT Ext: No edema A/P Problem List: (1) HTN (hypertension) ICD Codes: I10 - Hypertension Status: Chronic Plan: - BP had been running high, pain likely contributing - Pt was started on Procardia xl 60mg daily - Her BP decreased quite a bit, so will need to monitor her here today and decrease the Procardia XL to 30mg po daily with parameters to hold if systolic BP is less than 130. - Monitor (2) Herpes zoster ICD Codes: B02.9 - Zoster without complications Status: Acute Plan: - Pt is an 86 y/o female with left ear/facial pain over this past 4 or 5 days prior to admission seen by pcp/ophtho concerns for herpes zoster. No reported eye involvement per her eye doctor. - Pt presented with rash over the scalp/forehead/cheek/nose with scleral injection. - ED performed fluorescein testing with slit lamp and no proof of eye involvement. - ED consulted with Ophtho specification manager and no need for consult, but f/u in 10 days - Pt has been receiving IV Acyclovir - Polytrim ophthalmic - Neurontin, [place] PRN - She is still complaining of continued pain. Add on Celebrex 100mg po BID - PT - anticipate d/c to home with [facility] tomorrow (3) Dehydration ICD Codes: E86.0 - Dehydration Status: Acute Plan: - Improved from admission (4) DM type 2 (diabetes mellitus, type 2) ICD Codes: E11.9 - Type 2 diabetes mellitus Status: Chronic Plan: - Decrease Amaryl back to 4mg daily - Continue metformin - SSI (5) Afib ICD Codes: I48.91 - Atrial fibrillation Status: Chronic Plan: - EKG (05/19) --> Sinus rhythm with left axis deviation - ASA (6) SDH (subdural hematoma) ICD Codes: I62.00 - Subdural hematoma Status: Resolved Assessment and Plan Patient examined. Assessment and plan formulated with Deepika Welsh PA-C. I agree with the above. improved bp control, decrease cardizem to 30mg daily improved Blood sugar control, decrease amaryl 4mg to daily pt c/o continued pain at head in areas with zoster trial of celebrex bid, continue neurontin continue norco prn Problem Qualifiers (1) HTN (hypertension): Qualified Codes: I10 - Essential (primary) hypertension (2) Herpes zoster: Qualified Codes: B02.31 - Zoster conjunctivitis Deepika Welsh May 20, 2017 11:09 Gokul Frederick DO May 21, 2017 01:02
[2017-05-20 11:11] VITALS: BP 119/59; PULSE 74; RESP 18; TEMP 96.3
[2017-05-20] MEDS: ACETAMINOPHEN/HYDROcodone 325 MG/7.5 MG TAB PO PRN (12:13)
[2017-05-20] MEDS: CELECOXIB 100 MG CAP PO SCH ×2 (14:24→21:04)
[2017-05-20 16:49] VITALS: BP 102/68; PULSE 75; RESP 18; TEMP 98.3; O2SAT 94
--- NOTE | 2017-05-20 16:59 | EKG ---
Date Performed: 05/19/2017 Time Performed: 21:17:55 PTAGE: 86 years EKG: Sinus rhythm MARKED LEFT AXIS DEVIATION MODERATE VOLTAGE CRITERIA FOR LVH, CONSIDER NORMAL VARIANT NONSPECIFIC T- WAVE ABNORMALITY Since previous tracing, no significant change noted ABNORMAL ECG PREVIOUS TRACING : 11/03/2013 18.21 DOCTOR: Stacy Casiano Interpretating Date/Time 05/20/2017 16:58:23
[2017-05-20 22:11] VITALS: BP 100/52; PULSE 75; RESP 16; TEMP 98.3; O2SAT 92
[2017-05-21 01:23] VITALS: BP 105/55; PULSE 78; RESP 16; TEMP 98.3; O2SAT 93
[2017-05-21 06:02] VITALS: BP 118/56; PULSE 82; RESP 18; TEMP 97.7; O2SAT 95
[2017-05-21] MEDS: POLYMYXIN/TRIMETHOPRIM OPHT SOLN 10 ML BTL RIGHT EYE SCH ×3 (06:39→17:48)
[2017-05-21] MEDS: INSULIN ASPART SUPPLEMENTAL SCALE SQ SCH ×4 (06:40→20:35)
[2017-05-21] MEDS: GEMFIBROZIL 600 MG TAB PO SCH ×2 (06:40→15:52)
[2017-05-21 08:00] VITALS: BP 107/57; PULSE 69; RESP 18; TEMP 98.1; O2SAT 92
[2017-05-21] MEDS ORDERED: NIFEdipine 30 MG SUSTAINED RELEASE TAB PO SCH (09:00)
[2017-05-21] MEDS: PANTOPRAZOLE SOD 40 MG DELAYED RELEASE TAB PO SCH (09:17)
[2017-05-21] MEDS: METHIMAZOLE 5 MG TAB PO SCH (09:17)
[2017-05-21] MEDS: DOCUSATE SODIUM 100 MG CAP PO SCH ×2 (09:17→21:32)
[2017-05-21] MEDS: GABAPENTIN 300 MG CAP PO SCH ×3 (09:17→17:47)
[2017-05-21] MEDS: GLIMEPIRIDE 4 MG TAB PO SCH (09:18)
[2017-05-21] MEDS: CELECOXIB 100 MG CAP PO SCH ×2 (09:18→21:32)
[2017-05-21] MEDS: metFORMIN HCL 500 MG TAB PO SCH (09:18)
[2017-05-21] MEDS: ASPIRIN 81 MG CHEW TAB CHEW SCH (09:19)
[2017-05-21] MEDS: ACYCLOVIR INJ 600 MG in SODIUM CHLORIDE 0.9% INJ 100 ML IV SCH (11:52)
[2017-05-21 12:00] VITALS: BP 100/54; PULSE 74; RESP 18; TEMP 98.2; O2SAT 95
--- NOTE | 2017-05-21 14:08 | HHI.PR ---
Subjective Remarks less facial pain. Objective Vitals Vital Signs Date Time Temp Pulse Resp B/P (MAP) Pulse Ox O2 Delivery O2 Flow Rate FiO2 05/21/17 12:00 98.2 74 18 100/54 (69) 95 05/21/17 08:00 98.1 69 18 107/57 (74) 92 05/21/17 06:02 97.7 82 18 118/56 (76) 95 05/21/17 01:23 98.3 78 16 105/55 (72) 93 05/20/17 22:11 98.3 75 16 100/52 (68) 92 05/20/17 16:49 98.3 75 18 102/68 (79) 94 Result Diagram: 05/17/17 1055 Objective Remarks General: NAD, AAOx3 Chest: CTA Cardiac: Regular Abd: +BS, soft ND/NT Ext: No edema A/P Problem List: (1) HTN (hypertension) ICD Codes: I10 - Hypertension Status: Chronic Plan: - BP had been running high, pain likely contributing - tried to add procardia, but pt then developed hypotension - will stop procardia \ - observe BP readings (2) Herpes zoster ICD Codes: B02.9 - Zoster without complications Status: Acute Plan: - Pt is an 86 y/o female with left ear/facial pain over this past 4 or 5 days prior to admission seen by pcp/ophtho concerns for herpes zoster. No reported eye involvement per her eye doctor. - Pt presented with rash over the scalp/forehead/cheek/nose with scleral injection. - ED performed fluorescein testing with slit lamp and no proof of eye involvement. - ED consulted with Ophtho clinical transformation specialist and no need for consult, but f/u in 10 days - Pt has been receiving IV Acyclovir, change to PO acyclovir - Polytrim ophthalmic - Neurontin, [place] PRN - pain improved since starting celebrex - PT - anticipate d/c to home with [facility] tomorrow - if pt remains stable (3) Dehydration ICD Codes: E86.0 - Dehydration Status: Acute Plan: - Improved from admission (4) DM type 2 (diabetes mellitus, type 2) ICD Codes: E11.9 - Type 2 diabetes mellitus Status: Chronic Plan: - Decrease Amaryl back to 4mg daily - Continue metformin - SSI (5) Afib ICD Codes: I48.91 - Atrial fibrillation Status: Chronic Plan: - EKG (05/19) --> Sinus rhythm with left axis deviation - ASA (6) SDH (subdural hematoma) ICD Codes: I62.00 - Subdural hematoma Status: Resolved Problem Qualifiers (1) HTN (hypertension): Qualified Codes: I10 - Essential (primary) hypertension (2) Herpes zoster: Qualified Codes: B02.31 - Zoster conjunctivitis Gokul Frederick DO May 21, 2017 14:08
[2017-05-21 16:03] VITALS: BP 103/52; PULSE 81; RESP 18; TEMP 99.9; O2SAT 92
[2017-05-21 20:00] VITALS: BP 119/58; PULSE 84; RESP 20; TEMP 98; O2SAT 92
[2017-05-21] MEDS: valACYclovir HCL 500 MG TAB PO SCH (21:32)
[2017-05-22] VITALS: BP 112/55; PULSE 73; RESP 20; TEMP 99.5; O2SAT 91
[2017-05-22 04:00] VITALS: BP 118/59; PULSE 81; RESP 20; TEMP 97.4; O2SAT 92
[2017-05-22] MEDS: INSULIN ASPART SUPPLEMENTAL SCALE SQ SCH ×3 (06:00→16:11)
[2017-05-22] MEDS: POLYMYXIN/TRIMETHOPRIM OPHT SOLN 10 ML BTL RIGHT EYE SCH ×3 (06:00→10:59)
[2017-05-22] MEDS: GEMFIBROZIL 600 MG TAB PO SCH ×2 (06:01→16:11)
[2017-05-22 08:00] VITALS: BP 118/66; PULSE 84; RESP 20; TEMP 98.6; O2SAT 91
[2017-05-22] MEDS: valACYclovir HCL 500 MG TAB PO SCH (08:40)
[2017-05-22] MEDS: CELECOXIB 100 MG CAP PO SCH (08:40)
[2017-05-22] MEDS: metFORMIN HCL 500 MG TAB PO SCH (08:40)
[2017-05-22] MEDS: GABAPENTIN 300 MG CAP PO SCH ×2 (08:40→12:44)
[2017-05-22] MEDS: GLIMEPIRIDE 4 MG TAB PO SCH (08:40)
[2017-05-22] MEDS: ASPIRIN 81 MG CHEW TAB CHEW SCH (08:41)
[2017-05-22] MEDS: PANTOPRAZOLE SOD 40 MG DELAYED RELEASE TAB PO SCH (08:41)
[2017-05-22] MEDS: DOCUSATE SODIUM 100 MG CAP PO SCH (08:41)
[2017-05-22] MEDS: METHIMAZOLE 5 MG TAB PO SCH (08:46)
[2017-05-22 12:00] VITALS: BP 111/59; PULSE 83; RESP 16; TEMP 98.1; O2SAT 94
[2017-05-22] MEDS ORDERED: CELE100C PO (13:14)
[2017-05-22] MEDS ORDERED: VALT500T PO (13:14)
[2017-05-22] MEDS ORDERED: NEUR300C PO (13:14)
[2017-05-22] MEDS ORDERED: METF500 PO (13:16)
--- NOTE | 2017-05-22 13:21 | HHI.DS ---
Discharge Summary Admission Date May 16, 2017 at 14:20 Discharge Date: May 22, 2017 Admitting Diagnosis herpes zoster with possible eye involvment (1) Herpes zoster Diagnosis: Principal ICD Codes: B02.9 - Zoster without complications Status: Acute (2) HTN (hypertension) Diagnosis: Principal ICD Codes: I10 - Hypertension Status: Chronic (3) Dehydration Diagnosis: Principal ICD Codes: E86.0 - Dehydration Status: Acute (4) DM type 2 (diabetes mellitus, type 2) Diagnosis: Principal ICD Codes: E11.9 - Type 2 diabetes mellitus Status: Chronic (5) Afib Diagnosis: Secondary ICD Codes: I48.91 - Atrial fibrillation Status: Chronic Procedures None Brief History Pt is 86 yo with hx sdh, pafib, htn who presents with left ear/facial pain x 4 or 5days. Seen by pcp/ophtho and concerns for herpes zoster. No reported eye involvement per her eye doctor. Now pt presents with rash over the scalp/forehead/cheek/nose with scleral injection. ED performed florescein testing with slit lamp and no proof of eye involvement. ED consulted with ophtho personnel counselor and no need for consult..but f/u in 10 d IV acyclovir was given in ED. PT still has significan pain and has not been eating well. PE at Discharge General: NAD, AAOx3 Chest: CTA Cardiac: Regular Abd: +BS, soft ND/NT Ext: No edema Hospital Course HTN (hypertension) - BP had been running high, pain likely contributing - tried to add procardia, but pt then developed hypotension - will stop procardia - observe BP readings- now improved Herpes zoster - Pt is an 86 y/o female with left ear/facial pain over this past 4 or 5 days prior to admission seen by pcp/ophtho concerns for herpes zoster. No reported eye involvement per her eye doctor. - Pt presented with rash over the scalp/forehead/cheek/nose with scleral injection. - ED performed fluorescein testing with slit lamp and no proof of eye involvement. - ED consulted with Ophtho personnel counselor and no need for consult, but f/u in 7 days - Pt had been given IV Acyclovir which was change to PO acyclovir - Polytrim ophthalmic - Neurontin for nerve pain - pain improved since starting celebrex- will continue - will need home PT Dehydration - Improved from admission resolved after gentle IV hydration DM type 2 (diabetes mellitus, type 2) - Decrease Amaryl back to 4mg daily - increase metformin to 500mg BID with meals - SSI while in hospital Afib- chronic and stable - EKG (05/19) --> Sinus rhythm with left axis deviation - ASA SDH (subdural hematoma) in the past Resolved Pt Condition on Discharge: Stable Discharge Disposition: Disch w/ Home Health Serv Discharge Instructions DIET: Follow Instructions for: Diabetic Diet Activities you can perform: Regular-No Restrictions Follow up Referrals: Ophthalmology - 1 Week Please call to set up appointment PCP Follow-up - 3-[address] Maikel Aldana Please call to set up appointment New Medications: Celecoxib (Celebrex) 100 Mg Cap 100 MG PO BID for Pain Management, #28 CAP Gabapentin (Neurontin) 300 Mg Cap 300 MG PO TID for nerve pain, #90 CAP Metformin (Glucophage) 500 Mg Tab 500 MG PO BIDAC for Diabetes, #60 TAB Valacyclovir (Valtrex) 500 Mg Tab 1000 MG PO Q12HR for shingles, #14 TAB Continued Medications: Aspirin (Aspirin) 81 Mg Chew 81 MG CHEW DAILY, TAB 0 Refills Gemfibrozil (Gemfibrozil) 600 Mg Tab 600 MG PO BIDAC, #60 TAB 0 Refills Take 30 minutes prior to breakfast and dinner. Glimepiride (Glimepiride) 4 Mg Tab 4 MG PO DAILY for Blood Sugar Management, #30 TAB 0 Refills Take with breakfast or first main meal Ibuprofen (Ibuprofen) 600 Mg Tab 600 MG PO Q6H PRN for Pain/Inflammation, #40 TAB 0 Refills Methimazole (Methimazole) 5 Mg Tab 2.5 MG PO DAILY for Thyroid, #30 TAB 0 Refills Polymyxin B-Trimethoprim Opth Drops (Polymyxin B-Trimethoprim Opth Drops) 10,000 -0.1 Unit/Ml-% Soln 1 DROP RIGHT EYE Q6HR for Mgmt Bacterial Infection, #1 BOTTLE 0 Refills Discontinued Medications: Gabapentin (Gabapentin) 100 Mg Cap 100 MG PO HS, #30 CAP 0 Refills Metformin (Metformin) 500 Mg Tab 500 MG PO DAILY for Blood Sugar Management, #30 TAB 0 Refills With a meal Joyce Trinidad May 22, 2017 13:21 Gokul Frederick DO May 23, 2017 01:17
== END 2017-05-22 17:33 | disposition home health service (06) | DRG 596 ==
LOC: NEPD 10:59 → NEDA 13:58 → OBSVTOIN 14:20 → N05A 20:09
PROVIDERS: ADMIT Hospitalist; ATTEND Hospitalist
DX: B02.9 Zoster without complications (principal); I95.9 Hypotension, unspecified; I48.91 Unspecified atrial fibrillation; E11.9 Type 2 diabetes mellitus without complications; E86.0 Dehydration; E05.90 Thyrotoxicosis, unspecified without thyrotoxic crisis or storm; I10 Essential (primary) hypertension; M19.90 Unspecified osteoarthritis, unspecified site; E78.5 Hyperlipidemia, unspecified; J45.909 Unspecified asthma, uncomplicated; Z79.84 Long term (current) use of oral hypoglycemic drugs; Z86.73 Personal history of transient ischemic attack (TIA), and cerebral infarction without residual deficits
CPT/HCPCS: 80048; 80053; 82948; 85025; 93005; 96365; J0133; J1170; J1815; J2405; J2920; J2930; J7030